=== PATIENT | male | born 1990 | race Caucasian/White ===

== ENCOUNTER 2019-10-01 20:04 | Emergency (ER) | payer MEDICAID, SELFPAY ==
[~2019-10-01] VITALS: Ht 170.2 cm; Wt 57.6 kg
[2019-10-01 20:15] VITALS: Ht 170.2 cm; Wt 57.6 kg
[2019-10-01 21:09] VITALS: BP 111/61
== END 2019-10-01 21:09 | disposition home or self-care (01) ==
LOC: ED 20:04
DX: J45.901 Unspecified asthma with (acute) exacerbation (principal)
CPT/HCPCS: Q0092